=== PATIENT | female | born 1995 | race Caucasian/White ===

== ENCOUNTER 2020-02-15 09:22 | Day surgery (SDC) | payer OTHER ==
[~2020-02-15] VITALS: Ht 152.4 cm; Wt 51.7 kg
[2020-02-15 09:51] VITALS: BP 109/71
[2020-02-15 17:03] VITALS: BP 97/63
== END 2020-02-15 16:40 | disposition home or self-care (01) ==
LOC: DS 09:22 → OR 10:30 → EDBD 11:30 → OR 11:30 → DS 11:30
PROVIDERS: ATTEND Surgery
DX: K80.10 Calculus of gallbladder with chronic cholecystitis without obstruction (principal); Z20.828 Contact with and (suspected) exposure to other viral communicable diseases
CPT/HCPCS: J0690; J1170; J2250; J3010; J3490; U0003